=== PATIENT | male | born 1980 | race Hispanic/Latino ===

== ENCOUNTER 2021-11-09 16:38 | Emergency (ER) | payer OTHER, SELFPAY ==
[2021-11-09] MEDS ORDERED: Silver Nitrate Application 1 EACH ONE (17:22)
[2021-11-09] MEDS ORDERED: Boostrix 0.5 ML (Tdap) VIAL ONE (17:29)
== END 2021-11-09 18:19 | disposition home or self-care (01) ==
LOC: ERS 16:38
DX: I83.892 Varicose veins of left lower extremity with other complications (principal); F17.210 Nicotine dependence, cigarettes, uncomplicated
CPT/HCPCS: 90471; 90715